=== PATIENT | male | born 1980 | race Two or more races ===

== ENCOUNTER 2017-12-30 11:40 | Emergency (ER) | payer OTHER, BC ==
[2017-12-30] MEDS ORDERED: Diphtheria,Pertussis(Acell),Tetanus Vaccine 0.5 ML SDV IM ONE (12:04)
[2017-12-30] MEDS ORDERED: Lidocaine 1% 30 ML SDV INJECT ONE (12:04)
--- NOTE | 2017-12-30 12:04 | EDM.PDOC ---
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 Denies any other injury. Last tetanus vaccine >10yrs ago per pt. Onset: Today Duration: Constant Location: Reports: Upper Extremity, Right Quality: Reports: Ache Severity: Moderate Improves with: Reports: None Worsens with: Reports: None Associated Symptoms: Reports: No Other Symptoms Treatments [employer]/MAINTENANCE [employer]IST: Reports: NSAIDS Right 4-Ring finger Pain Score (Numeric/FACES): 3 - Related Data Allergies Allergy/AdvReac Type Severity Reaction Status Date / Time No Known Allergies Allergy Verified 12/30/17 11:47 Home Meds: Home Meds Ibuprofen 600 mg PO PRN 12/30/17 [History] Past Medical History - Past Health History Medical/Surgical History: Denies Medical/Surgical History - Past Surgical History Musculoskeletal Surgical History: Reports: Other (See Below) Other Musculoskeletal Surgeries/Procedures:: knee surgery Social & Family History - Family History Family Medical History: Noncontributory - Tobacco Use Smoking Status *Q: Current Every Day Smoker Years of Tobacco use: 15 Packs/Tins Daily: 1 - Caffeine Use Caffeine Use: Reports: Coffee, Energy Drinks - Recreational Drug Use Recreational Drug Use: No - Living Situation & Occupation Living situation: Reports: with Family Occupation: Employed ED ROS GENERAL - Review of Systems Review Of Systems: ROS reveals no pertinent complaints other than HPI. ED EXAM, SKIN/RASH Exam: See Below Exam Limited By: No Limitations General Appearance: Alert, WD/WN, No Apparent Distress Respiratory/Chest: No Respiratory Distress Peripheral Pulses: 3+: Radial (L), Radial (R) Extremities: Normal Range of Motion, Other (Rt distal 4th finger crush injury with irregular soft tissue rupture/laceration 2.5cm to depth of subcutaneous tissue, no nail damage, no active bleeding, no FB.) Neurological: Alert, Oriented, No Motor/Sensory Deficits Psychiatric: Normal Mood ED SKIN PROCEDURES - Laceration/Wound Repair Right Distal Finger Lac/Wound length In cm: 2.5 (Right 4th finger) Appearance: Subcutaneous, Irregular, Clean Distal NVT: Neuro & Vascular Intact, No Tendon Injury Anesthetic Type: Digital Local Anesthesia - Lidocaine (Xylocaine): 1% Plain Local Anesthetic Volume: 4cc Skin Prep: Chlorhexidine (Hibiciens), Saline Saline Irrigation (cc's): 500 Exploration/Debridement/Repair: Wound Explored, In a Bloodless Field, Explored to Base, Moderate Debridement, Minimally Undermined, Multiple Flaps Aligned Closed with: Sutures Suture Size: 3-0 # of Sutures: 8 Suture Type: Nylon, Interrupted Drain Placement: No Sterile Dressing Applied: Nurse Tetanus Status Addressed: Yes Complications: No Course - Vital Signs Last Recorded V/S: Last Vital Signs Temp 36.9 C 12/30/17 11:49 Pulse 100 12/30/17 11:49 Resp 18 12/30/17 11:49 BP 141/70 H 12/30/17 11:49 Pulse Ox 100 12/30/17 11:49 - Orders/Labs/Meds Orders: Active Orders 24 hr Category Date Time Status Vaccines to be Administered [RC] PER UNIT ROUTINE Care 12/30/17 12:04 Active Meds: Medications Discontinued Medications Generic Name Dose Route Start Last Admin Trade Name Freq PRN Reason Stop Dose Admin Bacitracin 1 dose 12/30/17 12:05 12/30/17 12:09 Bacitracin Oint 1 Gm TOP 12/30/17 12:06 1 dose ONETIME ONE Administration Cephalexin 500 mg 12/30/17 12:05 12/30/17 12:09 Keflex PO 12/30/17 12:06 500 mg ONETIME ONE Administration Diphtheria/Tetanus/Acell Pertussis 0.5 ml 12/30/17 12:04 12/30/17 12:09 Adacel IM 12/30/17 12:05 0.5 ml .ONCE ONE Administration Lidocaine HCl 30 ml 12/30/17 12:04 12/30/17 12:09 Xylocaine-Mpf 1% INJECT 12/30/17 12:05 30 ml ONETIME ONE Administration - Radiology Interpretation Free Text/Narrative:: Xray Rt 4th finger: no acute fracture per Rad. report. Departure - Departure Time of Disposition: 13:11 Disposition: Home, Self-Care 01 Condition: Good Clinical Impression: Work related injury Finger laceration Qualifiers: Encounter type: initial encounter Finger: ring finger Damage to nail status: without damage Foreign body presence: without foreign body Laterality: right Qualified Code(s): S61.214A - Laceration without foreign body of right ring finger without damage to nail, initial encounter Crushed finger, distal Qualifiers: Encounter type: initial encounter Qualified Code(s): S67.10XA - Crushing injury of unspecified finger(s), initial encounter - Discharge Information Instructions: Stitches, Wallace, or Adhesive Wound Closure, Gluj-ci-Ursy Forms: ED Department Discharge Additional Instructions: Rx: Cephalexin 500mg Rx: Ibuprofen 800mg *Take with food. Follow up in clinic in 7 to 10 days for suture removal. Return to ER if any signs of wound infection develop. - My Orders Last 24 Hours: My Active Orders 12/30/17 12:04 Vaccines to be Administered [RC] PER UNIT ROUTINE - Assessment/Plan Last 24 Hours: My Active Orders 12/30/17 12:04 Vaccines to be Administered [RC] PER UNIT ROUTINE
[2017-12-30] MEDS ORDERED: Cephalexin 500 MG Cap PO ONE (12:05)
[2017-12-30] MEDS ORDERED: Bacitracin Oint 1 GM U/D Packet TOP ONE (12:05)
--- NOTE | 2017-12-30 12:28 | CR ---
Clinical history: 37-year-old male crushed injury distal end of fourth finger. Interpretation: Extensive soft tissue disruption and swelling distal end of the right fourth (ring) finger. No sign of underlying fracture or joint dislocation. Possible male able motion. No foreign bodies.
== END 2017-12-30 13:23 | disposition home or self-care (01) ==
LOC: DL.ED 11:40
DX: S67.194A Crushing injury of right ring finger, initial encounter (principal); S61.214A Laceration without foreign body of right ring finger without damage to nail, initial encounter; Z23 Encounter for immunization; F17.210 Nicotine dependence, cigarettes, uncomplicated; W23.1XXA Caught, crushed, jammed, or pinched between stationary objects, initial encounter
CPT/HCPCS: 12001; 73140; 90471; 90715; 99283; A9270